=== PATIENT | female | born 1985 | race Caucasian/White ===

== ENCOUNTER 2017-07-27 11:46 | Inpatient (IN) | payer BC ==
[2017-07-27 12:41] LABS: Hematocrit 40 % (35-47); Hemoglobin 14.2 g/dl (12.0-16.0); Mean Corpuscular HGB Conc 35 g/dl (31-36); Mean Corpuscular Hemoglobin 32 pg (27-31); Mean Corpuscular Volume 90 fL (80-97); Mean Platelet Volume 9 um3 (7.4-10.4); Red Blood Count 4.48 10^6/ul (4.0-5.4); Red Cell Distribution Width 13 % (10.5-15); White Blood Count 10.9 10^3/ul (3.5-10.8)
[2017-07-27] MEDS ORDERED: Labetalol IV* 5 MG/ML 20 ML VIAL ONE (12:58)
[2017-07-27] MEDS ORDERED: Labetalol IV* 5 MG/ML 20 ML VIAL IV PUSH ONE ×2 (13:00→14:18)
[2017-07-27 13:03] LABS: Albumin 3.3 g/dL (3.2-5.2); BUN/Creatinine Ratio 12.5 (8-20); Calcium 9.5 mg/dL (8.6-10.3); EGFR African American 162.4 (>60); EGFR Non-African American 126.3 (>60); Globulin 2.8 g/dL (2-4); Potassium 3.8 mmol/L (3.5-5.0); Total Bilirubin 0.3 mg/dL (0.2-1.0); Total Protein 6.1 g/dL (6.4-8.9)
[2017-07-27 13:10] LABS: Urine Total Protein/24HR 437 mg/24Hr (0-165)
[2017-07-27] MEDS ORDERED: Oxytocin in LR* 20 UNITS/1,000 ML BAG IVPB ONE (13:31)
[2017-07-27] MEDS ORDERED: Oxytocin in LR* 20 UNITS/1,000 ML BAG IVPB SCH (14:00)
[2017-07-27] MEDS ORDERED: OBEPIDURAL* 250 ML ONE (23:04)
[2017-07-27] MEDS ORDERED: EPHEDrine (Pressors)* 50 MG/ML VIAL IV PUSH PRN (23:07)
[2017-07-27] MEDS ORDERED: Nalbuphine* 20 MG/ML 1 ML VIAL IV PRN (23:07)
[2017-07-27] MEDS ORDERED: Naloxone* 0.4 MG/ML 1 ML VIAL IV PRN (23:07)
[2017-07-27] MEDS ORDERED: Ondansetron INJ* 2 MG/ML VIAL IV PRN (23:07)
[2017-07-27 23:24] LABS: Hematocrit 40 % (35-47); Hemoglobin 13.6 g/dl (12.0-16.0); Mean Corpuscular HGB Conc 35 g/dl (31-36); Mean Corpuscular Hemoglobin 31 pg (27-31); Mean Corpuscular Volume 90 fL (80-97); Mean Platelet Volume 8 um3 (7.4-10.4); Red Blood Count 4.37 10^6/ul (4.0-5.4); Red Cell Distribution Width 13 % (10.5-15); White Blood Count 16.2 10^3/ul (3.5-10.8)
[2017-07-27] MEDS ORDERED: OBEPIDURAL* 250 ML EPIDURAL SCH (23:45)
[2017-07-28] MEDS ORDERED: ceFOXitin 2 GM IVPREMIX* 2 GM/50 ML BAG ONE (00:49)
[2017-07-28] MEDS ORDERED: Sodium Citrate/Citric Acid* 15 ML UDC ONE (00:49)
[2017-07-28] MEDS ORDERED: KETAMINE HCL* 50 MG/ML 10 ML VIAL ONE (01:43)
[2017-07-28] MEDS ORDERED: Lidocaine 2% PF* 10 ML AMP ONE (01:45)
[2017-07-28] MEDS ORDERED: OXYTOCIN* 10 UNITS/ML 1 ML VIAL ONE (01:45)
[2017-07-28] MEDS ORDERED: Ketorolac INJ* 30 MG/ML 1 ML VIAL ONE (01:45)
[2017-07-28] MEDS ORDERED: Ondansetron INJ* 2 MG/ML VIAL ONE (01:45)
[2017-07-28] MEDS ORDERED: Propofol* 10 MG/ML 20 ML BTL IV PUSH ONE (01:46)
[2017-07-28] MEDS ORDERED: Lidocaine 2% PF * 5 ML VIAL ONE (02:00)
[2017-07-28] MEDS ORDERED: Acetaminophen TAB* 325 MG PO PRN ×2 (02:18)
[2017-07-28] MEDS ORDERED: HYDROmorphone INJ* 1 MG/ML CARPUJECT SYRINGE IV PRN (02:18)
[2017-07-28] MEDS ORDERED: Witch Hazel PAD* JAR TOPICAL PRN (02:18)
[2017-07-28] MEDS ORDERED: Dibucaine 1% 28.35 GM TUBE PR PRN (02:18)
[2017-07-28] MEDS ORDERED: oxyCODONE TAB* 5 MG TAB PO PRN (02:18)
[2017-07-28] MEDS ORDERED: oxyCODONE/Acetamin 5/325 MG* TAB PO PRN ×2 (02:18)
[2017-07-28] MEDS ORDERED: Zolpidem TAB* 5 MG PO PRN (02:18)
[2017-07-28] MEDS ORDERED: DiMENhydriNATE IV* 50 MG/ML VIAL IV PUSH PRN (02:18)
[2017-07-28] MEDS ORDERED: Glycerin ADULT SUPP PR PRN (02:18)
[2017-07-28] MEDS ORDERED: Acetaminophen IV 1GM/100ML * 1,000 MG/100 ML VIAL IVPB ONE (02:21)
[2017-07-28] MEDS ORDERED: Oxytocin in LR* 20 UNITS/1,000 ML BAG IVPB SCH (03:00)
[2017-07-28] MEDS: Ibuprofen TAB* 600 MG PO PRN ×3 (04:17→17:17)
[2017-07-28] MEDS: Docusate CAP* 100 MG PO SCH ×3 (10:24→20:22)
[2017-07-28] MEDS: Labetalol TAB* 100 MG PO SCH ×2 (10:24→20:22)
[2017-07-28] MEDS: Simethicone TAB* 80 MG TAB.CHEW PO SCH ×4 (10:24→20:22)
--- NOTE | 2017-07-28 23:29 | OP ---
DATE OF OPERATION: 07/28/17 - ROOM #[id number] DATE OF : 85 SURGEON: Donal Davis MD GRANT ADMINISTRATOR: Melia Queen CM ANESTHESIA: Epidural. PRE-OP DIAGNOSES: Category 2 tracing, remote from delivery, and preeclampsia. POST-OP DIAGNOSES: Category 2 tracing, remote from delivery, and preeclampsia. OPERATIVE PROCEDURE: Low transverse section. ESTIMATED BLOOD LOSS: 600 cc. FINDINGS: Include a viable male. Apgars 8 and 9. Weight was 6 pounds and 6 ounces. Normal-appearing uterus, fallopian tubes, and ovaries. There was a 2- vessel cord. DESCRIPTION OF PROCEDURE: The patient identified, procedure identified as low transverse section. The patient was taken to the operating room, prepped and draped in the usual fashion in left lateral recumbent position under epidural anesthesia. Pfannenstiel incision was made in the abdomen and carried down through fat, fascia, and peritoneum. A transverse incision was made in the low uterine segments and extended laterally using blunt dissection. The above was delivered through the incision with ease. The cord was doubly clamped and cut and the infant was handed to the awaiting catalyst concentration operator. Cord blood was obtained. Placenta delivered spontaneously. The uterus was wiped out with a wet lap sponge. The uterus was closed using 0 Polysorb in a running fashion. A second layer was used to imbricate the first layer. Hemostasis was verified. The gutters were wiped out with a wet lap sponge. The uterus was placed back into the abdominal cavity. The peritoneum was then closed using 3-0 Polysorb in a running fashion. Good hemostasis achieved in the subrectus layers. The fascia was closed using 0 Polysorb in a running fashion. Good hemostasis was achieved in the subcu and copious irrigation was utilized and suctioned out. The skin was closed with 4-0 Monocryl in a subcuticular fashion. [id number]/[facility] #: [id number] [facility]
[2017-07-29] MEDS: Ibuprofen TAB* 600 MG PO PRN (00:08)
[2017-07-29 07:17] LABS: Hematocrit 33 % (35-47); Hemoglobin 11.4 g/dl (12.0-16.0); Mean Corpuscular HGB Conc 35 g/dl (31-36); Mean Corpuscular Hemoglobin 32 pg (27-31); Mean Corpuscular Volume 90 fL (80-97); Mean Platelet Volume 8 um3 (7.4-10.4); Red Blood Count 3.61 10^6/ul (4.0-5.4); Red Cell Distribution Width 13 % (10.5-15)
[2017-07-29] MEDS: Simethicone TAB* 80 MG TAB.CHEW PO SCH ×4 (08:44→20:30)
[2017-07-29] MEDS: Docusate CAP* 100 MG PO SCH ×3 (08:44→20:30)
[2017-07-29] MEDS: Labetalol TAB* 100 MG PO SCH ×2 (08:44→20:30)
[2017-07-29] MEDS: Ferrous Gluconate TAB* 324 MG TAB PO SCH ×2 (09:00→21:31)
[2017-07-30] MEDS: Labetalol TAB* 100 MG PO SCH ×2 (09:03→19:37)
[2017-07-30] MEDS: Simethicone TAB* 80 MG TAB.CHEW PO SCH ×4 (09:03→19:37)
[2017-07-30] MEDS: Docusate CAP* 100 MG PO SCH ×3 (09:03→19:36)
--- NOTE | 2017-07-30 12:36 | PTEDU ---
Patient Name: HENNY PEREZ HENNY PEREZ selected video: Follow Me Mum: The [employer] to Successful to view on 7 at 12:35:49 PM [id number]
--- NOTE | 2017-07-30 12:59 | PTEDU ---
Patient Name: HENNY PEREZ HENNY PEREZ selected video: Never Ever Shake a Baby to view on [facility]30/2017 at 12:58:47 [id number]
--- NOTE | 2017-07-30 13:08 | PTEDU ---
Patient Name: HENNY PEREZ HENNY PEREZ selected video: BBOB: Nurturing Your Gorgeous &Growing Baby by to view on 07/30/2017 at 1:07:48 PM [id number]
[2017-07-31] MEDS: Labetalol TAB* 100 MG PO SCH (08:40)
[2017-07-31] MEDS: Simethicone TAB* 80 MG TAB.CHEW PO SCH (08:40)
[2017-07-31] MEDS: Docusate CAP* 100 MG PO SCH (08:40)
[2017-07-31 09:56] VITALS: BP 155/100
== END 2017-07-31 10:35 | disposition home or self-care (01) | DRG 540 ==
LOC: MCHOBOUT 11:46 → MCHOB 12:58
PROVIDERS: ADMIT Obstetrics & Gynecology; ATTEND Obstetrics & Gynecology
PROC: 10907ZC Drainage of Amniotic Fluid, Therapeutic from Products of Conception, Via Natural or Artificial Opening (ICD-10-PCS; 2017-07-27)
PROC: 3E033VJ Introduction of Other Hormone into Peripheral Vein, Percutaneous Approach (ICD-10-PCS; 2017-07-27)
PROC: 4A1HXCZ Monitoring of Products of Conception, Cardiac Rate, External Approach (ICD-10-PCS; 2017-07-27)
PROC: 10D00Z1 Extraction of Products of Conception, Low, Open Approach (ICD-10-PCS; principal; 2017-07-28 01:25)
DX: O11.4 Pre-existing hypertension with pre-eclampsia, complicating childbirth (principal); J45.909 Unspecified asthma, uncomplicated; O76 Abnormality in fetal heart rate and rhythm complicating labor and delivery; O69.89X0 Labor and delivery complicated by other cord complications, not applicable or unspecified; O10.92 Unspecified pre-existing hypertension complicating childbirth; O99.52 Diseases of the respiratory system complicating childbirth; Z37.0 Single live birth; Z3A.37 37 weeks gestation of pregnancy
CPT/HCPCS: 36415; 80053; 82575; 84156; 84550; 85025; 85027; 86850; 86900; 86901; 88307; A9270-GY; J0694; J1885; J2001; J2405; J2590; J2704

== ENCOUNTER 2019-04-01 19:43 | Emergency (ER) | payer BC ==
[2019-04-01 20:28] VITALS: BP 156/108
[2019-04-01] MEDS ORDERED: Tetan/Diph/Pertus SYR(Tdap)* 0.5 ML SYR(BOOSTRIX) use SYR IM ONE (20:31)
--- NOTE | 2019-04-01 20:31 | UC ---
Laceration HPI - HPI Summary HPI Summary: 33-year-old female who sustained a small avulsion laceration to her distal left index finger while cutting food with a knife this evening. Last tetanus is unknown. - History Of Current Complaint Chief Complaint: UCLaceration Stated Complaint: LEFT INDEX FINGER LACERATION Time Seen by Provider: 04/01/19 20:30 Hx Obtained From: Patient Hx Last Menstrual Period: 03/14/19 Laceration Location: Finger - Left index finger Mechanism Of Injury: Sharp Trauma Onset/Duration: Sudden Onset Severity: Moderate Pain Intensity: 6 Aggravating Factors: Nothing - Allergies/Home Medications Allergies/Adverse Reactions: Allergies Allergy/AdvReac Type Severity Reaction Status Date / Time No Known Allergies Allergy Verified 04/01/19 20:28 Home Medications: Home Medications NK [No Home Medications Reported] 04/01/19 [History Confirmed 04/01/19] PMH/Surg Hx/FS Hx/Imm Hx Previously Healthy: Yes Cardiovascular History: Hypertension Respiratory History: Asthma - Surgical History Surgical History: Yes Surgery Procedure, Year, and Place: tonsillectomy, tendonitis-right arm - Family History Known Family History: Positive: Non-Contributory - Social History Lives: With Family Alcohol Use: None Substance Use Type: None Smoking Status (MU): Never Smoked Tobacco Have You Smoked in the Last Year: No - Immunization History Most Recent Influenza Vaccination: 05/2017 Most Recent Tetanus Shot: unknow Most Recent Pneumonia Vaccination: na Review of Systems All Other Systems Reviewed And Are Negative: Yes Skin: Positive: Other - Laceration distal left index finger. Is Patient Immunocompromised?: No Physical Exam Triage Information Reviewed: Yes Appearance: Well-Appearing, No Pain Distress, Well-Nourished Vital Signs: Initial Vital Signs Temp 99.9 F 04/01/19 20:23 Pulse 75 04/01/19 20:23 Resp 16 04/01/19 20:23 BP 156/108 04/01/19 20:23 Pulse Ox 100 04/01/19 20:23 Vital Signs Reviewed: Yes Musculoskeletal: Positive: Strength Intact, ROM Intact Neurological: Positive: Alert, Muscle Tone Normal, Other: - Good peripheral pulses neuro sensation capillary refill. Psychological Exam: Normal Skin: Positive: Other - Patient has an approximately 0.05 cm avulsion laceration to her distal left index finger. The nail is intact. Laceration Course/Dx - Course/Dx Course Of Treatment: Gelfoam was applied to the avulsion laceration with good control of bleeding. A bulky dressing was then applied. She may change that daily and watch for signs of infection. She was given a Tdap immunization. - Diagnosis Provider Diagnosis: Laceration of left index finger Discharge - Sign-Out/Discharge Documenting (check all that apply): Patient Departure All imaging exams completed and their final reports reviewed: No Studies - Discharge Plan Condition: Fair Disposition: HOME Patient Education Materials: Skin Avulsion (ED) Referrals: Loreta Thompson MD [Primary Care Provider] - Additional Instructions: Change dressing daily and watch for signs of infection such as hot, red, tender , red streaks and pus drainage. Follow-up with your primary care provider as needed. You were given Tdap tetanus immunization which is good for 8-10 years. When you change dressing keep the Gelfoam in place. - Billing Disposition and Condition Condition: FAIR Disposition: Home
[2019-04-01] MEDS ORDERED: Gelfoam 12-7 ADSORBABL SPONGE* 1 EA SPONGE TOPICAL ONE (20:35)
== END 2019-04-01 21:00 | disposition home or self-care (01) ==
LOC: UCCORT 19:43
DX: S61.211A Laceration without foreign body of left index finger without damage to nail, initial encounter (principal); W26.0XXA Contact with knife, initial encounter; Y93.G1 Activity, food preparation and clean up; Y92.9 Unspecified place or not applicable; Z23 Encounter for immunization; I10 Essential (primary) hypertension
CPT/HCPCS: 90471; 90715; 99212; A9270-GY; G0463